=== PATIENT | female | born 1930 | race Caucasian/White ===

== ENCOUNTER 2016-09-08 12:25 | Emergency (ER) | payer MEDICARE, BC ==
[2016-09-08 12:46] VITALS: BP 140/86
--- NOTE | 2016-09-13 11:16 | UC ---
Skin Complaint HPI - HPI Summary HPI Summary: Patient was scratched by her cat 3 days ago. she has bruising on the top of her hand, no swelling, no redness. Is worried due to the bruising, she is on 4 ASA a day - History of Current Complaint Chief Complaint: UCUpperExtremity Time Seen by Provider: 09/08/16 12:58 Stated Complaint: RIGHT HAND CAT SCRATCH Hx Obtained From: Patient ?: No Onset/Duration: Sudden Onset, Lasting Days Skin Exposure Onset/Duration: Days Ago Timing: Constant Onset Severity: Moderate Current Severity: Mild Pain Intensity: 0 Pain Scale Used: 0-10 Numeric Character: Pain Aggravating: Nothing Alleviating: Nothing - Allergy/Home Medications Allergies/Adverse Reactions: Allergies Allergy/AdvReac Type Severity Reaction Status Date / Time No Known Allergies Allergy Verified 09/08/16 12:49 Home Medications: Home Medications Aspirin EC Low Dose* [Ecotrin EC Low Dose*] 324 mg PO BEDTIME 09/08/16 [History Confirmed 09/08/16] Atenolol TAB* [Tenormin TAB* 25 MG] 25 mg PO DAILY 09/08/16 [History Confirmed 09/08/16] Glimepiride [Amaryl] 2 mg PO DAILY 09/08/16 [History Confirmed 09/08/16] Levothyroxine TAB* [Synthroid TAB*] 25 mcg PO 0800 09/08/16 [History Confirmed 09/08/16] Losartan Potassium [Cozaar] 50 mg PO DAILY 09/08/16 [History Confirmed 09/08/16] Pravastatin (NF) [Pravachol (NF)] 20 mg PO 1700 09/08/16 [History Confirmed 11/20] amLODIPine TAB* [Norvasc TAB*] 5 mg PO DAILY 09/08/16 [History Confirmed ] Review of Systems Constitutional: Negative Skin: Bruising, Other - puncture emanuel Eyes: Negative ENT: Negative Respiratory: Negative Cardiovascular: Negative Gastrointestinal: Negative Genitourinary: Negative Motor: Negative Neurovascular: Negative Musculoskeletal: Negative Neurological: Negative Psychological: Negative All Other Systems Reviewed And Are Negative: Yes PMH/Surg Hx/FS Hx/Imm Hx Previously Healthy: Yes Endocrine History Of: Reports: Diabetes Denies: Thyroid Disease Cardiovascular History Of: Reports: Hypertension Cancer History Of: Denies: Breast Cancer - Surgical History Surgical History: Yes Surgery Procedure, Year, and Place: right hip replacement. left total knee. T& A. Cataracts - Family History Known Family History: Positive: Cardiac Disease, Hypertension - Social History Alcohol Use: None Substance Use Type: None Smoking Status (MU): Never Smoked Tobacco - Immunization History Most Recent Influenza Vaccination: [id number] Most Recent Tetanus Shot: unknown tetanus Most Recent Pneumonia Vaccination: yes Physical Exam Triage Information Reviewed: Yes Appearance: Well-Appearing, Well-Nourished, Pain Distress Vital Signs: Initial Vital Signs Temp 97.7 F 09/08/16 12:37 Pulse 105 09/08/16 12:37 Resp 14 09/08/16 12:37 BP 140/86 09/08/16 12:37 Pulse Ox 100 09/08/16 12:37 Vital Signs Reviewed: Yes Eye Exam: Normal Eyes: Positive: Conjunctiva Clear ENT Exam: Normal ENT: Positive: Normal ENT inspection, Hearing grossly normal, TMs normal Dental Exam: Normal Neck exam: Normal Neck: Positive: Supple, Nontender, No Lymphadenopathy Respiratory Exam: Normal Respiratory: Positive: Chest non-tender, Lungs clear, Normal breath sounds Cardiovascular Exam: Normal Cardiovascular: Positive: RRR, No Murmur, Pulses Normal Abdominal Exam: Normal Abdomen Description: Positive: Nontender, No Organomegaly, Soft Bowel Sounds: Positive: Present Musculoskeletal Exam: Normal Musculoskeletal: Positive: Strength Intact, ROM Intact, No Edema Neurological Exam: Normal Neurological: Positive: Alert, Muscle Tone Normal Psychological Exam: Normal Skin: Positive: Other - 3 puncture wounds, large amount of cruising in the dorsum of hand. Course/Dx - Course Course Of Treatment: hx obtained, exam performed. indio wrap applied for swelling reduction and put on ABX for a few days. - Diagnoses Provider Diagnoses: cat scratch. bruising Discharge - Discharge Plan Condition: Stable Disposition: HOME Prescriptions: Sulfamethox/Trimethoprim DS* [Bactrim DS 800/160 TAB*] 1 tab PO BID #10 tab Patient Education Materials: Cat Scratch Disease (ED) Referrals: Sorin Chicas MD [Primary Care Provider] - Additional Instructions: Take the antibiotic as prescribed. Do warm soaks daily for the next few days, and use the indio wrap for mild compression to reduce the swelling. Follow up with any increased swelling, pain or redness
== END 2016-09-08 13:16 | disposition home or self-care (01) ==
LOC: UCCORT 12:25
DX: S61.431A Puncture wound without foreign body of right hand, initial encounter (principal); S60.221A Contusion of right hand, initial encounter; W55.03XA Scratched by cat, initial encounter; Y93.9 Activity, unspecified; Y92.9 Unspecified place or not applicable; E11.9 Type 2 diabetes mellitus without complications; Z79.84 Long term (current) use of oral hypoglycemic drugs; I10 Essential (primary) hypertension; Z79.82 Long term (current) use of aspirin; Z96.641 Presence of right artificial hip joint; Z96.652 Presence of left artificial knee joint; Z98.49 Cataract extraction status, unspecified eye
CPT/HCPCS: 99212; G0463